=== PATIENT | female | born 2000 | race Caucasian/White ===

== ENCOUNTER 2019-08-29 00:29 | Emergency (ER) | payer BC ==
[~2019-08-29] VITALS: Ht 162.6 cm; Wt 59.0 kg
[2019-08-29 00:35] VITALS: BP 102/96
--- NOTE | 2019-08-29 00:42 | NUR ---
PT TAKEN TO BED 6
--- NOTE | 2019-08-29 00:49 | NUR ---
Dr. Ruelas examining patient.
--- NOTE | 2019-08-29 00:50 | NUR ---
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 PT ARRIVES IN SPLINT AND SLING FROM MEDICS PT STATES SHE DID NOT WANT TO RIDE IN AMBULANCE. +SWELLING , + WARMTH, NO BRUISING OPEN SKIN NOTED AT THIS TIME. PT AWAKE AND ALERT, FACIAL GRIMACING NOTED WHEN MOVING RIGHT ARM. PT STATES PAIN IS MORE TO UPPER ARM, +CMS TO LOWER RT ARM. NO PMH
[2019-08-29] MEDS ORDERED: ONDANSETRON 4 MG ODT PO ONE (01:10)
[2019-08-29] MEDS ORDERED: HYDROcodone/APAP 5/325 MG 1 TAB TAB PO ONE (01:10)
--- NOTE | 2019-08-29 01:38 | NUR ---
X-Ray at bedside.
[2019-08-29] MEDS ORDERED: MORPHINE SULFATE 4 MG/ML SYR IVP ONE (01:55)
--- NOTE | 2019-08-29 02:14 | NUR ---
ERMD VERBAL ORDER FOR MORPHINE 4MG IM ROUTE. ADMINISTERED AND EDUCATED ON SIDE EFFECTS. PT VERBALIZED UNDERSTANDING.
--- NOTE | 2019-08-29 02:50 | NUR ---
LONG ARM SPLINT APPLIED TO PT R ARM, WRAPPED IN SANDEE WRAP. +CSM
--- NOTE | 2019-08-29 02:51 | NUR ---
SLING SIZE MEDIUM PLACED ON PT R ARM, SWATH APPLIED ACROSS PT TORSO PER DR BENEDICT'S INSTRUCTIONS.
[2019-08-29 03:04] VITALS: BP 102/96
--- NOTE | 2019-08-29 03:04 | NUR ---
DPatient discharged with v/s stable. Written and verbal after care instructions given and explained. Patient alert, oriented and verbalized understanding of instructions. Ambulatory with steady gait. All questions addressed prior to discharge. ID band removed. Patient advised to follow up with PMD. Rx of PERCOCET; ZOFRAN; COLACE given. Patient educated on indication of medication including possible reaction and side effects. Opportunity to ask questions provided and answered.
== END 2019-08-29 03:04 | disposition home or self-care (01) ==
LOC: MED 00:29
DX: S42.341A Displaced spiral fracture of shaft of humerus, right arm, initial encounter for closed fracture (principal); V00.131A Fall from skateboard, initial encounter; Y93.51 Activity, roller skating (inline) and skateboarding; Y92.331 Roller skating rink as the place of occurrence of the external cause; Y99.8 Other external cause status
CPT/HCPCS: 29105; 73060; 96374; 99283; J2270; Q0092; Q0162